=== PATIENT | female | born 1950 ===

== ENCOUNTER 2024-08-05 10:00 | Inpatient (IN) | payer OTHER ==
[~2024-08-05] VITALS: Ht 152.4 cm; Wt 56.7 kg
[2024-08-05 11:01] VITALS: BP 147/73
[2024-08-05] MEDS ORDERED: ZESTRIL5 MG PO (11:05)
[2024-08-05] MEDS ORDERED: PROTONIX40 MG PO (11:06)
[2024-08-05] MEDS ORDERED: ROSUVASTATIN CA10 MG PO (11:06)
[2024-08-05] MEDS ORDERED: GENTLE LAXATIVE5 MG PO (11:06)
[2024-08-13] MEDS ORDERED: CEFTRIAXONE SODIUM 2,000 MG VIAL ONE (08:36)
[2024-08-13] MEDS ORDERED: METRONIDAZOLE/SODIUM CHLORIDE 500 MG/100 ML PIGGYBACK IV ONE (08:36)
[2024-08-13 08:47] LABS: RH POSITIVE
[2024-08-13] MEDS ORDERED: LIDOCAINE HCL 1%/EPINEPHRINE 20ML VIAL IJ ONE (10:08)
[2024-08-13] MEDS ORDERED: BUPIVACAINE HCL/Mpf 0.5% 10ML VIAL ONE (10:08)
[2024-08-13] MEDS ORDERED: RINGERS SOLUTION,LACTATED 1,000 ML IV SCH (12:30)
[2024-08-13] MEDS ORDERED: OxyCODONE HCL 5 MG TABLET (ROXICODONE) PO PRN (12:30)
[2024-08-13] MEDS ORDERED: ONDANSETRON HCL 2 MG/ML VIAL IV PRN (12:30)
[2024-08-13] MEDS ORDERED: DEXTROSE 50 % IN WATER 0.5 G/ML VIAL IV PRN (12:30)
[2024-08-13] MEDS ORDERED: MORPHINE SULFATE 4 MG/ML CARTRIDGE IV PRN (12:30)
[2024-08-13] MEDS ORDERED: ACETAMINOPHEN 500 MG GEL..CAP PO SCH (14:00)
[2024-08-13] MEDS ORDERED: ENALAPRILAT DIHYDRATE 1.25 MG/ML VIAL IV PRN (16:15)
[2024-08-13] MEDS ORDERED: POLYETHYLENE GLYCOL 3350 17 GM BLIST.PACK PO SCH (17:00)
[2024-08-13] MEDS ORDERED: GABAPENTIN 300 MG CAPSULE PO SCH (17:00)
[2024-08-13] MEDS ORDERED: ROSUVASTATIN CALCIUM 10 MG TABLET PO SCH (17:00)
[2024-08-13 18:12] LABS: BASO % 0.1 % (0.1-1.2); HEMATOCRIT 35.7 % (34.1-44.9); HEMOGLOBIN 11.8 g/dL (11.2-15.7); LYMPH # 0.83 (1.18-3.74); LYMPH % 10.6 % (19.3-53.1); MEAN CORPUSCULAR HEMOGLOBIN 29.1 pg (25.6-32.2); MONO # 0.45 (0.24-0.82); MONO % 5.8 % (4.7-12.5); NEUT % 83.4 % (34.0-71.1); PLATELET COUNT 177 K/uL (163-369); RED BLOOD COUNT 4.06 M/uL (3.93-5.22); RED CELL DISTRIBUTION WIDTH 14.6 % (11.6-14.4)
[2024-08-13 18:28] LABS: ALBUMIN 3.4 gm/dL (3.4-5.0); CALCIUM 9.2 mg/dL (8.5-10.1); CREATININE SERUM 0.85 mg/dL (0.55-1.02); GFR 65.56; MAGNESIUM 2.1 mg/dL (1.8-2.4); PHOSPHOROUS 2.8 mg/dL (2.5-4.9); POTASSIUM 4.6 mEq/L (3.5-5.1)
[2024-08-13 18:42] VITALS: BP 124/63; O2SAT 95
[2024-08-13] MEDS ORDERED: FAMOTIDINE/PF 20 MG/2 ML VIAL IV PUSH SCH (21:00)
[2024-08-14 00:22] VITALS: BP 102/56; O2SAT 96
[2024-08-14 07:32] LABS: BASO % 0.4 % (0.1-1.2); EOS # 0.01 (0.04-0.54); EOS % 0.2 % (0.7-7.0); HEMATOCRIT 33.1 % (34.1-44.9); HEMOGLOBIN 10.7 g/dL (11.2-15.7); LYMPH # 1.46 (1.18-3.74); LYMPH % 26.3 % (19.3-53.1); MEAN CORPUSCULAR HEMOGLOBIN 28.2 pg (25.6-32.2); MONO # 0.44 (0.24-0.82); MONO % 7.9 % (4.7-12.5); NEUT # 3.62 (1.56-6.13); NEUT % 65.2 % (34.0-71.1); PLATELET COUNT 166 K/uL (163-369); RED CELL DISTRIBUTION WIDTH 14.8 % (11.6-14.4)
[2024-08-14 08:18] LABS: ALBUMIN 2.9 gm/dL (3.4-5.0); CALCIUM 8.6 mg/dL (8.5-10.1); CREATININE SERUM 0.78 mg/dL (0.55-1.02); GFR 72.39; MAGNESIUM 2.1 mg/dL (1.8-2.4); PHOSPHOROUS 2.6 mg/dL (2.5-4.9); POTASSIUM 4.75 mEq/L (3.5-5.1)
[2024-08-14 08:32] VITALS: BP 102/57; O2SAT 95
[2024-08-14] MEDS ORDERED: LISINOPRIL 5 MG TABLET PO SCH (09:00)
[2024-08-14] MEDS ORDERED: ENOXAPARIN SODIUM 40 MG/0.4 ML SYRINGE SUBCUTANEO SCH (17:00)
[2024-08-14 23:23] VITALS: BP 106/64; O2SAT 98
[2024-08-15 01:45] VITALS: BP 110/53; O2SAT 97
[2024-08-15] MEDS ORDERED: ENOXAPARIN SODIUM 40 MG/0.4 ML SYRINGE SUBCUTANEO SCH (09:00)
[2024-08-15 09:24] VITALS: BP 137/57; O2SAT 95
[2024-08-15 16:16] VITALS: BP 100/57; O2SAT 95
[2024-08-16 01:03] VITALS: BP 109/59; O2SAT 95
[2024-08-16 08:33] VITALS: BP 128/64; O2SAT 95
[2024-08-16] MEDS ORDERED: TYLENOL ARTHRI650 MG PO (11:26)
[2024-08-16] MEDS ORDERED: NEURONTIN300 MG PO (11:26)
[2024-08-16] MEDS ORDERED: INTESTINEX680 M1 PO (11:26)
== END 2024-08-16 13:58 | disposition home or self-care (01) | DRG 330 ==
LOC: O/R 08-13 05:05 → SURH 08-13 10:00 → SURG 08-13 14:34
PROVIDERS: ADMIT Surgery; ATTEND Surgery
PROC: 0DBP4ZZ Excision of Rectum, Percutaneous Endoscopic Approach (ICD-10-PCS; 2024-08-13)
PROC: 07BC4ZZ Excision of Pelvis Lymphatic, Percutaneous Endoscopic Approach (ICD-10-PCS; 2024-08-13)
PROC: 0DJD8ZZ Inspection of Lower Intestinal Tract, Via Natural or Artificial Opening Endoscopic (ICD-10-PCS; 2024-08-13)
PROC: 0DTN4ZZ Resection of Sigmoid Colon, Percutaneous Endoscopic Approach (ICD-10-PCS; principal; 2024-08-13 10:45)
DX: C19 Malignant neoplasm of rectosigmoid junction (principal); K62.5 Hemorrhage of anus and rectum; R59.0 Localized enlarged lymph nodes

== ENCOUNTER 2024-09-17 05:36 | Day surgery (SDC) | payer OTHER ==
[2024-09-06 11:53] LABS: URINE APPEARANCE Clear; URINE BILIRRUBIN Negative (NEGATIVE); URINE BLOOD Trace; URINE COLOR Yellow; URINE GLUCOSE Negative (NEGATIVE); URINE KETONE Negative (NEGATIVE); URINE LEUKOCYTE Large; URINE NITRATE Negative; URINE PROTEIN Negative (NEGATIVE); URINE UROBILINOGEN 0.2 E.U./dl
[2024-09-06 11:57] LABS: URINE BACTERIA 766.8 uL (0.0-1933); URINE EPITHELIAL CELLS 71.2 uL (0.0-38.8); URINE RBC 24.7 uL (0.0-20.8); URINE WBC 96.8 uL (0.0-23.2)
[2024-09-06 12:07] LABS: BASO % 0.8 % (0.1-1.2); EOS # 0.23 (0.04-0.54); EOS % 5.8 % (0.7-7.0); LYMPH # 1.53 (1.18-3.74); LYMPH % 38.5 % (19.3-53.1); MEAN PLATELET VOLUME 11.90 fl (9.4-12.4); MONO # 0.37 (0.24-0.82); MONO % 9.3 % (4.7-12.5); NEUT # 1.81 (1.56-6.13); NEUT % 45.6 % (34.0-71.1); RED CELL DISTRIBUTION WIDTH 14.9 % (11.6-14.4); URINE CAST 0.00 uL (0.0-1.40)
[2024-09-06 12:39] LABS: INR 1.07
[2024-09-06 12:42] LABS: ALT/SGPT 31.0 U/L (12-78); AST/SGOT 34.0 U/L (15-37); BILIRUBIN TOTAL 0.41 mg/dL (0.3-1.2); BUN CREA RATIO 16.0 (7.0-25.0); CREATININE SERUM 0.85 mg/dL (0.55-1.02); GFR 65.38; GLOBULINA 4.4 G/DL (2.4-3.5); GLUCOSE FASTING 116.0 mg/dL (65-100); OSMOLALITY SERUM 279.0 MOSM/KG (275-295)
[~2024-09-17 05:36] MED LIST: GENTLE LAXATIVE5 MG PO; INTESTINEX680 M1 PO; NEURONTIN300 MG PO; PROTONIX40 MG PO; ROSUVASTATIN CA10 MG PO; TYLENOL ARTHRI650 MG PO; ZESTRIL5 MG PO
[2024-09-17] MEDS ORDERED: TRAM1TAB98 PO (10:08)
[2024-09-17] MEDS ORDERED: CEFTRIAXONE SODIUM 2,000 MG VIAL IV ONE (11:15)
[2024-09-17] MEDS ORDERED: LIDOCAINE HCL 1%/EPINEPHRINE 20ML VIAL IJ ONE (11:15)
[2024-09-17] MEDS ORDERED: BUPIVACAINE HCL 30 ML VIAL IV ONE (11:15)
[2024-09-17] MEDS ORDERED: HEPARIN SODIUM,PORCINE 0.5 UNITS/ML SYRINGE IV ONE (11:15)
== END 2024-09-17 13:30 | disposition home or self-care (01) ==
LOC: CIR.AMB 05:36
PROVIDERS: ATTEND Surgery
DX: C19 Malignant neoplasm of rectosigmoid junction (principal)
CPT/HCPCS: 36561; C1751